=== PATIENT | female | born 1950 | race Caucasian/White ===

== ENCOUNTER → 2016-05-03 | Outpatient (CLI) | payer OTHER ==
[~2016-05-03] MED LIST: ASPIRIN DELAYE325 MG PO; DITROPAN5 MG PO; Isordil20 MG PO; METOPROLOL25 MG PO; PREVACID30 M1 PO; Vicodin 5/500 505 MG PO; XANAX0.5 MG PO; ZOCOR40 MG PO
== END | disposition home or self-care (01) ==
LOC: MAMMO 12:08
DX: Z12.31 Encounter for screening mammogram for malignant neoplasm of breast (principal); R29.890 Loss of height; N95.9 Unspecified menopausal and perimenopausal disorder; M85.88 Other specified disorders of bone density and structure, other site; Z85.828 Personal history of other malignant neoplasm of skin; Z98.1 Arthrodesis status

== ENCOUNTER → 2016-09-09 | Day surgery (SDC) | payer MEDICARE, MEDICAID ==
[~2016-09-09] VITALS: Ht 149.8 cm; Wt 54.4 kg
[~2016-09-09] MED LIST changes: -ASPIRIN DELAYE325 MG PO; +ASPIRIN81 M1 PO; +DITROPAN XL5 MG PO; -DITROPAN5 MG PO; +HYDROCODONE BIT1 T11 PO; +IMDUR SA60 MG PO; -Isordil20 MG PO; +XANAX0.25 MG PO; -XANAX0.5 MG PO; +ZOCOR10 MG PO; -ZOCOR40 MG PO
--- NOTE | ~2016-09-09 | O ---
[place], [place] OPERATIVE NOTE NAME: ANA ARIZMENDI UNIT #: [id number] ROOM: DOCTOR: LORNA MINOR MD BIRTHDATE: [birth year] DOS: HISTORY OF PRESENT ILLNESS: A 66-year-old patient who presented with chief complaint of dysphagia to solid food, difficulty to initiate swallow at times, upper esophagus distress. ALLERGIES: PENICILLIN AND IODINE. FAMILY HISTORY: Noncontributory. PAST SURGICAL HISTORY: Hysterectomy, appendectomy, tonsillectomy, neck fusion. PAST MEDICAL HISTORY: Hypertension, COPD, coronary artery disease, hyperlipidemia. SOCIAL HISTORY: Active smoker a pack or two. Alcohol history, none. PROCEDURE: Today's procedure part of investigation is panendoscopy plus biopsy plus esophageal dilation. PREMEDICATION: Versed and Diprivan. SCOPE: Olympus forward-viewing gastroscope Q10 video. REPORT: After putting the patient in the left lateral position and after application of lubricant to the scope, the scope was introduced. Thereafter, under direct visualization, I advanced through the length of the esophagus without difficulty. Gastric pouch was entered. Gastritis seen. Antrum was biopsied. Duodenal bulb, second and third part was within normal limits. Scope was gradually withdrawn to the proximal stomach. A balloon size 20 was introduced into the gastric pouch and inflated to size 20 and gradually orally extracted. Highest resistance at the cervical esophagus was experienced. The patient extubated, tolerated procedure well. IMPRESSION: Upper esophageal stricture, status post balloon dilation to size 20. PLAN AND DISCUSSION: We will try soft and regular diet and we will reassess clinical response in a couple of weeks in the office. I thank you very much indeed for your kind referral. [place], [place] OPERATIVE NOTE NAME: ANA ARIZMENDI Vanesa UNIT #: [id number] ROOM: DOCTOR: LORNA MINOR MD BIRTHDATE: [birth year] LORNA MINOR MD CM:OPRECORD:OPERATIVE NOTE [id number] YONY MINOR MD 09/09/16 164 interface
[2016-09-09 11:36] VITALS: BP 124/80
[2016-09-09 13:13] VITALS: BP 150/74
[2016-09-09 13:30] VITALS: BP 166/90
[2016-09-09 13:45] VITALS: BP 152/83
== END | disposition home or self-care (01) ==
LOC: SDC 09-06 08:45
DX: K22.2 Esophageal obstruction (principal); K29.50 Unspecified chronic gastritis without bleeding; I10 Essential (primary) hypertension; I25.10 Atherosclerotic heart disease of native coronary artery without angina pectoris; E78.5 Hyperlipidemia, unspecified; F17.210 Nicotine dependence, cigarettes, uncomplicated; Z90.710 Acquired absence of both cervix and uterus; Z98.890 Other specified postprocedural states; I25.2 Old myocardial infarction; J43.9 Emphysema, unspecified; F41.9 Anxiety disorder, unspecified; K21.9 Gastro-esophageal reflux disease without esophagitis; J45.909 Unspecified asthma, uncomplicated; Z86.711 Personal history of pulmonary embolism; Z88.0 Allergy status to penicillin; Z88.8 Allergy status to other drugs, medicaments and biological substances; Z95.5 Presence of coronary angioplasty implant and graft; Z82.49 Family history of ischemic heart disease and other diseases of the circulatory system; Z80.9 Family history of malignant neoplasm, unspecified

== ENCOUNTER → 2017-06-01 | Outpatient (CLI) | payer MEDICARE, MEDICAID | END | disposition home or self-care (01) | LOC: RAD 10:08 | DX: Z13.820 Encounter for screening for osteoporosis (principal); C80.1 Malignant (primary) neoplasm, unspecified; Z78.0 Asymptomatic menopausal state; Z90.710 Acquired absence of both cervix and uterus ==

== ENCOUNTER → 2017-09-06 | Day surgery (SDC) | payer MEDICARE, MEDICAID ==
[~2017-09-06] VITALS: Ht 149.8 cm; Wt 54.0 kg
--- NOTE | ~2017-09-06 | O ---
[place], [place] OPERATIVE NOTE NAME: ANA ARIZMENDI UNIT #: [id number] ROOM: DOCTOR: LORNA MINOR MD BIRTHDATE: [birth year] DOS: 09/06/2017 GASTROENDOSCOPIC REPORT HISTORY OF PRESENT ILLNESS: The patient is a 66-year-old who has difficulty swallowing, solid food is not going down mostly in the upper esophagus. ALLERGIES: PENICILLIN AND IMODIUM. FAMILY HISTORY: Noncontributory. PAST MEDICAL HISTORY: Hypertension, coronary artery disease, and COPD. PAST SURGICAL HISTORY: Hysterectomy, tonsillectomy, and appendectomy. PROCEDURE: Today's procedure part of investigation is panendoscopy plus esophageal dilation. PREMEDICATION: Propofol. SCOPE: Olympus forward-viewing gastroscope Q10 video. REPORT: After putting the patient in left lateral position and application of lubricant to the scope, the scope was introduced; thereafter, under direct visualization, I advanced through the length of esophagus without difficulty. Gastric pouch was entered. Duodenal bulb, second and third part within normal limits. Scope was gradually withdrawn back to the gastric pouch. A balloon size 20 was utilized; however, we had to compromise to size 19, at the upper esophagus since it was very tight and the patient tolerated the procedure well. IMPRESSION: Upper esophageal benign stricture, status post balloon dilation to size 19. PLAN AND DISCUSSION: Supportive therapy. Clinical reassessment. Followup routinely with you in office, p.r.n. visit with us in GI Clinic. Thank you very much indeed. [place], [place] OPERATIVE NOTE NAME: ANA ARIZMENDI UNIT #: [id number] ROOM: DOCTOR: LORNA MINOR MD BIRTHDATE: [birth year] LORNA MINOR MD CM:OPRECORD:OPERATIVE NOTE 7 YONY MINOR MD 09/06/17 0843 interface
[2017-09-06 06:25] VITALS: BP 137/81
[2017-09-06 07:55] VITALS: BP 158/79
[2017-09-06 08:09] VITALS: BP 160/85
[2017-09-06 08:25] VITALS: BP 161/84
== END | disposition home or self-care (01) ==
LOC: SDC 09-01 11:00
DX: K22.2 Esophageal obstruction (principal); K21.9 Gastro-esophageal reflux disease without esophagitis; I10 Essential (primary) hypertension; I25.10 Atherosclerotic heart disease of native coronary artery without angina pectoris; I25.2 Old myocardial infarction; N28.9 Disorder of kidney and ureter, unspecified; J44.9 Chronic obstructive pulmonary disease, unspecified; F41.9 Anxiety disorder, unspecified; F17.210 Nicotine dependence, cigarettes, uncomplicated; Z86.711 Personal history of pulmonary embolism; Z79.01 Long term (current) use of anticoagulants; Z87.19 Personal history of other diseases of the digestive system; Z90.710 Acquired absence of both cervix and uterus; Z98.890 Other specified postprocedural states; Z82.49 Family history of ischemic heart disease and other diseases of the circulatory system; Z88.0 Allergy status to penicillin; Z88.8 Allergy status to other drugs, medicaments and biological substances; Z79.899 Other long term (current) drug therapy

== ENCOUNTER → 2017-09-21 | Outpatient (CLI) | payer MEDICARE, MEDICAID | END | disposition home or self-care (01) | LOC: RAD 12:44 | DX: R06.02 Shortness of breath (principal); J44.9 Chronic obstructive pulmonary disease, unspecified ==

== ENCOUNTER → 2018-03-07 | Outpatient (CLI) | payer MEDICARE, MEDICAID | END | disposition home or self-care (01) | LOC: MAMMO 13:43 | DX: Z12.31 Encounter for screening mammogram for malignant neoplasm of breast (principal); R92.8 Other abnormal and inconclusive findings on diagnostic imaging of breast ==

== ENCOUNTER → 2018-03-12 | Outpatient (CLI) | payer MEDICARE, MEDICAID | END | disposition home or self-care (01) | LOC: RAD 09:37 | DX: M25.512 Pain in left shoulder (principal) ==

== ENCOUNTER → 2018-08-22 | Day surgery (SDC) | payer MEDICARE, MEDICAID ==
[~2018-08-22] VITALS: Ht 149.8 cm; Wt 53.5 kg
[~2018-08-22] MED LIST changes: +CLOPIDOGREL75 MG PO; +PANTOPRAZOLE SO40 MG PO; +PROVENTIL HFA6.7 GM INH; +QUETIAPINE FUMA25 MG PO; +VITAMIN D32000 UNI1 PO; +ZOCOR20 MG PO
--- NOTE | ~2018-08-22 | O ---
[place], [place] OPERATIVE NOTE NAME: ANA ARIZMENDI UNIT #: [id number] ROOM: DOCTOR: LORNA MINOR MD BIRTHDATE: [birth year] DOS: 08/22/2018 GASTROENDOSCOPIC REPORT INDICATIONS: A 68-year-old patient who has presented with chief complaint of dysphagia and dyspepsia, undergoing investigation. The patient in aggressive consumer of nicotine in the form of smoking. ALLERGIES: PENICILLIN. FAMILY HISTORY: Pancreatic carcinoma. PAST SURGICAL HISTORY: Appendectomy, tonsillectomy, neck surgery, fusion. PAST MEDICAL HISTORY: Hypercholesterolemia, hypertension, coronary artery disease, on the stent. SOCIAL HISTORY: Aggressive smoker about a pack and half to 2 packs a day and 2 carbonated soda per day. PROCEDURE: Today's procedure part of investigation is panendoscopy plus balloon dilation of esophagus. PREMEDICATION: Propofol. SCOPE: Olympus forward-viewing gastroscope Q10 video. REPORT: After putting the patient in left lateral position and application of lubricant to the scope, the scope was introduced. Thereafter, under direct visualization, advanced through the length of esophagus without difficulty. Benign stricture was noticed. Esophagus was free of esophageal varicosity or web. A small hiatal hernia was noticed. Gastric pouch was entered. Gastritis seen. Antral biopsy obtained. Duodenal bulb, second and third part within normal limits. The patient extubated back to the gastric pouch. A balloon size 18 was utilized and this patient's esophagus was dilated. She tolerated the procedure well. IMPRESSION: Benign esophageal stricture, status post balloon dilation, hiatal hernia, gastritis, status post biopsy. PLAN AND DISCUSSION: Continuation with Protonix 40 mg day. The patient advised to abstain from smoking cigarettes and resume clopidogrel from tomorrow and antireflux with elevation of the head of the bed 6-inch all times. [place], [place] OPERATIVE NOTE NAME: ANA ARIZMENDI Vaneas UNIT #: [id number] ROOM: DOCTOR: LORNA MINOR MD BIRTHDATE: [birth year] LORNA MINOR MD CM:OPRECORD:OPERATIVE NOTE [id number] LORNA MINOR MD 08/29/18 1417 interface
[2018-08-22 07:15] VITALS: BP 155/87
[2018-08-22 08:16] VITALS: BP 118/78
[2018-08-22 08:31] VITALS: BP 146/89
[2018-08-22 08:46] VITALS: BP 154/84
== END | disposition home or self-care (01) ==
LOC: SDC 08-17 15:30
DX: K22.2 Esophageal obstruction (principal); K29.50 Unspecified chronic gastritis without bleeding; K44.9 Diaphragmatic hernia without obstruction or gangrene; I25.10 Atherosclerotic heart disease of native coronary artery without angina pectoris; F17.210 Nicotine dependence, cigarettes, uncomplicated; E78.00 Pure hypercholesterolemia, unspecified; I25.2 Old myocardial infarction; J43.9 Emphysema, unspecified; I11.0 Hypertensive heart disease with heart failure; I50.9 Heart failure, unspecified; F41.9 Anxiety disorder, unspecified; K21.9 Gastro-esophageal reflux disease without esophagitis; F12.90 Cannabis use, unspecified, uncomplicated; Z88.0 Allergy status to penicillin; Z88.3 Allergy status to other anti-infective agents; Z90.710 Acquired absence of both cervix and uterus; Z98.890 Other specified postprocedural states; Z86.73 Personal history of transient ischemic attack (TIA), and cerebral infarction without residual deficits; Z90.49 Acquired absence of other specified parts of digestive tract; Z79.899 Other long term (current) drug therapy; Z79.82 Long term (current) use of aspirin; Z95.818 Presence of other cardiac implants and grafts; Z80.0 Family history of malignant neoplasm of digestive organs; Z82.49 Family history of ischemic heart disease and other diseases of the circulatory system

== ENCOUNTER → 2018-09-17 | Outpatient (CLI) | payer MEDICARE, MEDICAID | END | disposition home or self-care (01) | LOC: CT 12:55 | DX: I70.0 Atherosclerosis of aorta (principal); R10.10 Upper abdominal pain, unspecified; R11.0 Nausea ==

== ENCOUNTER → 2019-02-05 | Outpatient (CLI) | payer MEDICARE, MEDICAID | END | disposition home or self-care (01) | LOC: RAD 10:20 | DX: R06.02 Shortness of breath (principal) ==

== ENCOUNTER → 2019-07-15 | Outpatient (CLI) | payer MEDICARE, MEDICAID | END | disposition home or self-care (01) | LOC: CARD 13:31 | DX: I49.8 Other specified cardiac arrhythmias (principal); J38.1 Polyp of vocal cord and larynx ==

== ENCOUNTER → 2021-02-09 | Outpatient (CLI) | payer OTHER, MEDICAID | END | disposition home or self-care (01) | LOC: US 10:09 | PROVIDERS: ATTEND Internal Medicine | DX: I73.9 Peripheral vascular disease, unspecified (principal) ==

== ENCOUNTER → 2021-05-14 | Outpatient (CLI) | payer OTHER, MEDICAID | END | disposition home or self-care (01) | LOC: US 12:31 | PROVIDERS: ATTEND Internal Medicine | DX: I65.23 Occlusion and stenosis of bilateral carotid arteries (principal); I70.0 Atherosclerosis of aorta; R10.10 Upper abdominal pain, unspecified ==

== ENCOUNTER → 2021-05-17 | Outpatient (CLI) | payer OTHER, MEDICAID | END | disposition home or self-care (01) | LOC: RAD 00:38 → MAMMO 14:30 | PROVIDERS: ATTEND Internal Medicine | DX: M85.88 Other specified disorders of bone density and structure, other site (principal); Z78.0 Asymptomatic menopausal state; Z53.9 Procedure and treatment not carried out, unspecified reason ==

== ENCOUNTER → 2021-09-09 | Outpatient (CLI) | payer OTHER, MEDICAID | END | disposition home or self-care (01) | LOC: RAD 10:30 | PROVIDERS: ATTEND Internal Medicine | DX: R06.02 Shortness of breath (principal); M85.88 Other specified disorders of bone density and structure, other site; I70.0 Atherosclerosis of aorta ==

== ENCOUNTER → 2021-12-31 | Outpatient (CLI) | payer OTHER, MEDICAID | LOC: CARD 00:05 | PROVIDERS: ATTEND Internal Medicine | DX: I25.10 Atherosclerotic heart disease of native coronary artery without angina pectoris (principal); R07.9 Chest pain, unspecified ==

== ENCOUNTER → 2022-02-02 | Outpatient (CLI) | payer OTHER, MEDICAID ==
[2022-02-02 08:38] LABS: CREATININE 0.71 mg/dL (0.55-1.02)
== END | disposition home or self-care (01) ==
LOC: LAB 07:57 → CT 08:00
PROVIDERS: Radiology Diagnostic Radiology; ATTEND Internal Medicine
DX: Z01.812 Encounter for preprocedural laboratory examination (principal); I73.9 Peripheral vascular disease, unspecified

== ENCOUNTER → 2022-03-22 | Outpatient (CLI) | payer OTHER, MEDICAID | END | disposition home or self-care (01) | LOC: LAB 12:15 | PROVIDERS: ATTEND Internal Medicine | DX: Z01.812 Encounter for preprocedural laboratory examination (principal); I73.9 Peripheral vascular disease, unspecified ==

== ENCOUNTER → 2022-03-28 | Outpatient (CLI) | payer OTHER, MEDICAID | END | disposition home or self-care (01) | LOC: CT 01:35 | PROVIDERS: ATTEND Internal Medicine | DX: I70.203 Unspecified atherosclerosis of native arteries of extremities, bilateral legs (principal) ==

== ENCOUNTER → 2022-04-01 | Outpatient (CLI) | payer OTHER, MEDICAID | END | disposition home or self-care (01) | LOC: LAB 08:51 | PROVIDERS: ATTEND Internal Medicine | DX: R79.89 Other specified abnormal findings of blood chemistry (principal) ==

== ENCOUNTER → 2022-04-06 | Outpatient (CLI) | payer OTHER, MEDICAID | END | disposition home or self-care (01) | LOC: CT 01:45 | PROVIDERS: ATTEND Internal Medicine | DX: I67.82 Cerebral ischemia (principal) ==

== ENCOUNTER → 2024-03-01 | Outpatient (CLI) | payer OTHER, MEDICAID ==
[2024-03-01 12:07] LABS: ALKALINE PHOSPHATASE 66 U/L (46-116); BUN 13 mg/dl (9-23); CHLORIDE 101 mmol/L (98-107); POTASSIUM 4.3 mmol/L (3.4-5.1); SGPT/ALT 52 U/L (5-49); TOTAL PROTEIN 7.4 gm/dL (6.0-8.0)
== END | disposition home or self-care (01) ==
LOC: LAB 11:18
PROVIDERS: ATTEND Orthopaedic Surgery
DX: M25.512 Pain in left shoulder (principal)

== ENCOUNTER → 2024-03-20 | Outpatient (CLI) | payer OTHER, MEDICAID | END | disposition home or self-care (01) | LOC: US 02:19 | PROVIDERS: ATTEND Internal Medicine | DX: R79.89 Other specified abnormal findings of blood chemistry (principal) ==

== ENCOUNTER 2024-04-13 16:54 | Emergency (ER) | payer OTHER, MEDICAID ==
[~2024-04-13] VITALS: Ht 149.8 cm; Wt 54.4 kg
[2024-04-13 17:09] VITALS: BP 160/78
== END 2024-04-13 18:20 | disposition home or self-care (01) ==
LOC: ED 16:54
DX: S00.03XA Contusion of scalp, initial encounter (principal); I25.2 Old myocardial infarction; I25.10 Atherosclerotic heart disease of native coronary artery without angina pectoris; J43.9 Emphysema, unspecified; K21.9 Gastro-esophageal reflux disease without esophagitis; F41.9 Anxiety disorder, unspecified; R51.9 Headache, unspecified; I10 Essential (primary) hypertension; Z88.0 Allergy status to penicillin; Z91.041 Radiographic dye allergy status; Z98.890 Other specified postprocedural states; Z90.49 Acquired absence of other specified parts of digestive tract; Z90.89 Acquired absence of other organs; Z90.710 Acquired absence of both cervix and uterus; Z87.891 Personal history of nicotine dependence; W20.8XXA Other cause of strike by thrown, projected or falling object, initial encounter; Y93.89 Activity, other specified; Y92.89 Other specified places as the place of occurrence of the external cause; Y99.8 Other external cause status

== ENCOUNTER → 2024-05-22 | Outpatient (CLI) | payer OTHER, MEDICAID ==
[2024-05-22 09:19] LABS: BASO % 0.6 % (0.0-1.0); EOS # 0.2 10*3/uL (0.0-0.4); EOS % 3.7 % (1.0-4.0); MEAN CELL VOLUME 94.2 fl (81.0-99.0); MEAN CORPUSCULAR HGB 30.4 pg (27.0-31.0); MEAN CORPUSCULAR HGB CONC 32.3 g/dl (33.0-37.0); MEAN PLATELET VOLUME 9.5 fl (9.6-12.3); MONO # 0.4 10*3/uL (0.1-1.0); MONO % 7.2 % (3.0-9.0); NEUT # 2.7 10*3/uL (2.3-7.9); NEUT % 49.1 % (47.0-73.0); PLATELET COUNT AUTOMATED 262 10*3/uL (130-400); RED BLOOD COUNT 4.14 10*6/uL (4.10-5.10); RED CELL DISTRI WIDTH 13.8 % (0-14.5); WHITE BLOOD COUNT 5.4 10*3/uL (4.8-10.8)
[2024-05-22 09:58] LABS: ALKALINE PHOSPHATASE 62 U/L (46-116); BUN 12 mg/dl (9-23); CHLORIDE 106 mmol/L (98-107); CHOLESTEROL 173 mg/dL (<200); FREE T4 1.18 ng/dl (0.89-1.76); LDL CHOLESTEROL 104 mg/dL (9-159); POTASSIUM 4.3 mmol/L (3.4-5.1); SGPT/ALT 43 U/L (5-49); TOTAL PROTEIN 7.1 gm/dL (6.0-8.0); TRIGLYCERIDES 102 mg/dl (<150)
[2024-05-22 10:20] LABS: VITAMIN D, 25-HYDROXY 75.7 ng/mL (30-100)
== END | disposition home or self-care (01) ==
LOC: LAB 08:52
PROVIDERS: ATTEND Internal Medicine
DX: R76.8 Other specified abnormal immunological findings in serum (principal); Z13.0 Encounter for screening for diseases of the blood and blood-forming organs and certain disorders involving the immune mechanism; Z13.220 Encounter for screening for lipoid disorders; Z13.1 Encounter for screening for diabetes mellitus; Z13.228 Encounter for screening for other metabolic disorders; Z13.6 Encounter for screening for cardiovascular disorders; Z13.89 Encounter for screening for other disorder; Z13.9 Encounter for screening, unspecified; E55.9 Vitamin D deficiency, unspecified; E03.9 Hypothyroidism, unspecified

== ENCOUNTER → 2024-08-30 | Outpatient (CLI) | payer OTHER, MEDICAID ==
[2024-08-30 09:57] LABS: SGPT/ALT 35.0 U/L (5-49)
== END | disposition home or self-care (01) ==
LOC: LAB 08:38
PROVIDERS: ATTEND Internal Medicine
DX: R74.01 Elevation of levels of liver transaminase levels (principal)